=== PATIENT | female | born 1960 | race Caucasian/White ===

== ENCOUNTER 2017-02-02 12:57 | Day surgery (SDC) | payer BC ==
[~2017-02-02] VITALS: Ht 167.6 cm; Wt 69.3 kg
[2017-02-02 14:31] VITALS: Ht 167.6 cm; Wt 69.3 kg
[2017-02-02] MEDS ORDERED: AMLO-145 PO (14:36)
[2017-02-02 16:19] VITALS: BP 147/74; PULSE 53; RESP 16
--- NOTE | 2017-02-02 17:43 | OPPN ---
Date/Time of Note Date/Time of Note DATE: 02/02/17 TIME: 17:40 Proc Note GI Procedure Date 02/02/17 Pre-procedure Diagnosis * Colorectal cancer screening Post-procedure Diagnosis Assessment: * Mild melanosis coli * Prominent ileocecal valve. Biopsies obtained * Moderate-sized internal hemorrhoids. Plan: * Review pathology * Annual Hemoccult stool testing * Screening colonoscopy in 10 years Surgeon see signature line Metal Turner none Anesthesia Type: moderate sedation (Versed 4 mg, fentanyl 75 mcg) EBL none Transfusion required none Biopsy 1: Ileocecal valve Grafts/Implants none Complication(s) none Pt Condition post procedure: stable Disposition: home Indications: screening/surveillance Procedure Description After informed consent, with the patient/relatives understanding the procedure, its indications and potential risks and complications, including but not limited to: Allergic reaction, bleeding, perforation, infection, and after all pertinent questions were answered to the patient's satisfaction, the patient/ relatives signed the witnessed informed consent. Following this, premedication was administered slowly IV push under careful cardiovascular and respiratory monitoring with pulse [employer], automatic blood pressure, and lunchroom monitor. Once the sedative effect was achieved, the patient was placed in the left lateral decubitus position, digital rectal examination was performed. The colonoscope was then introduced and advanced under visual control throughout all segments of the colon including: the rectum, sigmoid, descending colon, splenic flexure, transverse colon, hepatic flexure, ascending colon and finally reaching the cecum which was clearly identified by transillumination, finger indentation and the ileocecal valve. Careful examination of the mucosa of the lower gastrointestinal tract both on insertion as well as withdrawal of the instrument disclosed the following findings: PREPARATION QUALITY: [Adequate], RECTAL EXAM: The anorectal area was visualized examined and digital rectal examination performed with the following findings: No evidence of perirectal disease, no masses. 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 Multiple biopsies were obtained. Otherwise the examined mucosa appears within normal limits. There is no evidence of inflammatory changes, diverticular formation, polyps or other neoplasms, vascular malformation, or any other abnormality. Moderate size internal hemorrhoids The instrument was then withdrawn, the patient tolerated the procedure well and was transferred out of the Endoscopy Suite awake and in good condition to continue recovery under observation. Copies To: CC: MARCIAL SABA MD, MORDO MD Feb 02, 2017 17:43
[2017-02-02] MEDS ORDERED: MIDAZOLAM 1 MG/ML 2 ML INJ ONE ×2 (17:56)
[2017-02-02] MEDS ORDERED: FENTAnyl 50 MCG/ML VIAL ONE (17:56)
== END 2017-02-02 18:57 | disposition home or self-care (01) ==
LOC: GIL 12:57
PROVIDERS: ATTEND Internal Medicine Gastroenterology
DX: Z12.11 Encounter for screening for malignant neoplasm of colon (principal); K63.89 Other specified diseases of intestine; K64.8 Other hemorrhoids; D17.79 Benign lipomatous neoplasm of other sites; I10 Essential (primary) hypertension
CPT/HCPCS: 45380; 88305; J2250; J3010; Z7610